=== PATIENT | female | born 1990 | race Caucasian/White ===

== ENCOUNTER 2016-11-30 23:35 | Inpatient (IN) | payer BC ==
[~2016-11-30] VITALS: Ht 175.3 cm; Wt 98.2 kg
[~2016-11-30 23:35] MED LIST: NO MEDICATIONS
[2016-11-30 23:56] VITALS: BP 119/69
[2016-11-30 23:59] VITALS: BP 119/69
[2016-11-30] MEDS ORDERED: PRENATAL TABLE1 EAC3 PO (23:59)
[2016-12-01] VITALS (17 sets, daily range): BP systolic 110–156; BP diastolic 60–86
[2016-12-01 00:57] LABS: BASOPHIL COUNT 0.1 K/uL (0-0.1); EOSINOPHIL (%) 0.9 % (0-5); EOSINOPHIL COUNT 0.2 K/uL (0-0.3); HEMATOCRIT 37.5 % (36.0-46.0); IMMATURE GRANULOCYTE (%) 1.8 % (0.0-0.7); IMMATURE GRANULOCYTE COUNT 0.3 K/uL; INSTRUMENT ABS NEUTROPHIL CT 13.8 K/uL; LYMPHOCYTE COUNT 2.8 K/uL (1.0-2.8); MCH 30.8 PG (29.0-34.0); MCHC 33.3 G/DL (30.0-36.0); MCV 92.4 FL (83-99); MEAN PLAT.VOLUME 12.4 uM^3 (9.5-12.4); MONOCYTE COUNT 1.3 K/uL (0-0.8); NEUTROPHIL (%) 74.9 % (45-76); NEUTROPHIL COUNT 13.8 K/uL (1.8-6.4); PLATELET COUNT 227 K/uL (156-360); RBC DIS.WIDTH-CV 13.6 % (11.8-14.6); RBC DIS.WIDTH-SD 45.3 % (39-53); RED BLOOD COUNT 4.06 M/uL (3.80-5.20); WHITE BLOOD COUNT 18.4 K/uL (4.1-10.2)
[2016-12-01] MEDS ORDERED: MOTRIN800 MG PO (10:41)
[2016-12-02 06:36] LABS: BASOPHIL COUNT 0.1 K/uL (0-0.1); EOSINOPHIL (%) 0.8 % (0-5); EOSINOPHIL COUNT 0.1 K/uL (0-0.3); HEMATOCRIT 29.1 % (36.0-46.0); IMMATURE GRANULOCYTE (%) 2.1 % (0.0-0.7); IMMATURE GRANULOCYTE COUNT 0.4 K/uL; INSTRUMENT ABS NEUTROPHIL CT 12.8 K/uL; LYMPHOCYTE COUNT 2.5 K/uL (1.0-2.8); MCH 30.4 PG (29.0-34.0); MCHC 32.6 G/DL (30.0-36.0); MCV 93.3 FL (83-99); MEAN PLAT.VOLUME 12.1 uM^3 (9.5-12.4); MONOCYTE (%) 7.1 % (3-12); MONOCYTE COUNT 1.2 K/uL (0-0.8); NEUTROPHIL (%) 74.7 % (45-76); NEUTROPHIL COUNT 12.8 K/uL (1.8-6.4); PLATELET COUNT 175 K/uL (156-360); RBC DIS.WIDTH-CV 13.9 % (11.8-14.6); RBC DIS.WIDTH-SD 46.9 % (39-53); WHITE BLOOD COUNT 17.1 K/uL (4.1-10.2)
[2016-12-02 06:38] LABS: RED BLOOD COUNT 3.12 M/uL (3.80-5.20)
[2016-12-02 07:13] VITALS: BP 122/75
[2016-12-02 14:38] VITALS: BP 134/69
[2016-12-02 23:28] VITALS: BP 125/70
[2016-12-03] MEDS ORDERED: FERROUS SULFAT325 MG PO (10:26)
[2016-12-03] MEDS ORDERED: IBUPROFEN800 MG PO (10:27)
== END 2016-12-03 12:45 | disposition home or self-care (01) | DRG 767 ==
LOC: LDRP-OP 23:35 → 2WEST 23:36 → LDRP-OP 01-09 15:20
PROVIDERS: Midwife; Nurse Practitioner
DX: O48.0 Post-term pregnancy (principal); O99.824 Streptococcus B carrier state complicating childbirth; O73.1 Retained portions of placenta and membranes, without hemorrhage; Z3A.41 41 weeks gestation of pregnancy; Z37.0 Single live birth
CPT/HCPCS: 85025; G0378; J0595; J2540; J2590; J7120